=== PATIENT | female | born 1990 | race African-American/Black ===

== ENCOUNTER 2017-02-18 20:58 | Emergency (ER) | payer OTHER ==
[~2017-02-18] VITALS: Ht 160 cm; Wt 113.4 kg
[2017-02-18] MEDS ORDERED: IBUPROFEN 600600 M1 PO (22:13)
[2017-02-18 22:20] VITALS: BP 142/85
== END 2017-02-18 22:21 | disposition home or self-care (01) ==
LOC: ER 20:58
DX: S91.011A Laceration without foreign body, right ankle, initial encounter (principal); F10.99 Alcohol use, unspecified with unspecified alcohol-induced disorder; W22.8XXA Striking against or struck by other objects, initial encounter; Y93.89 Activity, other specified; Y92.098 Other place in other non-institutional residence as the place of occurrence of the external cause; Y99.8 Other external cause status